=== PATIENT | male | born 1945 ===

== ENCOUNTER → 2017-07-19 | Outpatient (CLI) | payer MEDICARE, MEDICAID | END | disposition home or self-care (01) | LOC: RADPV 08:37 | PROVIDERS: ATTEND Hospitalist | DX: N18.3 Chronic kidney disease, stage 3 (moderate) (principal) | CPT/HCPCS: 76770 ==

== ENCOUNTER → 2019-01-26 | Outpatient (CLI) | payer MEDICARE, MEDICAID | END | disposition home or self-care (01) | LOC: LABPV 11:17 | PROVIDERS: ATTEND Hospitalist | DX: N18.6 End stage renal disease (principal); I70.0 Atherosclerosis of aorta; Z99.2 Dependence on renal dialysis | CPT/HCPCS: 87340 ==